=== PATIENT | female | born 2000 | race Caucasian/White ===

== ENCOUNTER 2023-10-11 07:36 | Emergency (ER) | payer OTHER, SELFPAY ==
--- NOTE | 2023-10-11 07:40 | ED.GENADULT ---
HPI - General Adult General Chief complaint: Urogenital-Female Stated complaint: UTI Time Seen by Provider: 10/11/23 07:38 History of Present Illness HPI narrative: Nacho is a 22F with a PMH of frequent UTI that presented to the ED with dysuria, urinary frequency and suprapubic pain. She has slight right flank pain but no, fevers, or systemic symptoms. She has an IUD to prevent . Related Data Home Medications Medication Instructions Recorded Confirmed levonorgestrel 14 mcg/24 hrs (3 1 device intrauterine ONCE 03/13/22 10/11/23 yrs) 13.5 mg intrauterine device (Almaz) Allergies Allergy/AdvReac Type Severity Reaction Status Date / Time No Known Allergies Allergy Unverified 10/11/23 07:43 Review of Systems Review of Systems: All systems reviewed & are unremarkable except as noted in HPI and below PMFSH Surgical History Surgical History H/O gynecological procedure almaz insertion 03/13/2022 Family History Family History Other Diabetes mellitus Social History Social History Smoking status: Never smoker Alcohol intake: never Substance use: never Substance use type: does not use Living arrangements: with family Occupation/Education: occupation Additional occupation/education comments: [employer] Gender identity (if verbalized by the patient): Female Sexual Orientation (if Verbalized by the Patient): Straight or Heterosexual Exam Const: General: cooperative, healthy appearing, comfortable, no acute distress, well developed, alert, awake and Physically active Orientation/consciousness: oriented to person, oriented to place and oriented to time HENMT: Head: normal to inspection, normocephalic and atraumatic Ears: hearing grossly normal bilaterally and external ears normal Face/Nose/Sinus: Normal external nose present Eyes: General: appearance normal, both eyes and all related structures Periorbital: periorbital findings normal Sclera: sclerae normal Pupils: Equal, round and reactive pupils present Neck: Neck: normal visual inspection Chest: Chest palpation & inspection: normal inspection of the chest Resp: Effort & Inspection: normal respiratory effort, able to speak in complete sentences and no respiratory distress Cardio: Jugular venous distension: no JVD GI: Inspection: normal to inspection GI Palp: Yes Soft to palpation Auscultation: normal bowel sounds Skin: General skin exam: normal color and no rashes or lesions noted Neuro: General: oriented to person, oriented to place and oriented to time Cranial nerves: Yes Equal, round and reactive pupils present Extrem: General: normal to inspection Course Vital Signs Vital signs: Vital Signs Temperature 97.5 F L 10/11/23 07:41 Pulse Rate 93 10/11/23 07:41 Respiratory Rate 20 10/11/23 07:41 Blood Pressure 155/95 H 10/11/23 07:41 Pulse Oximetry 98 10/11/23 07:41 Oxygen Delivery Room Air 10/11/23 07:41 Temperature 97.5 F L 10/11/23 07:41 Pulse Rate 93 10/11/23 07:41 Respiratory Rate 20 10/11/23 07:41 Blood Pressure 155/95 H 10/11/23 07:41 Pulse Oximetry 98 10/11/23 07:41 Oxygen Delivery Room Air 10/11/23 07:41 Medical Decision Making Vital Signs Vital Signs: Vital Signs Temperature 97.5 F L 10/11/23 07:41 Pulse Rate 93 10/11/23 07:41 Respiratory Rate 20 10/11/23 07:41 Blood Pressure 155/95 H 10/11/23 07:41 Pulse Oximetry 98 10/11/23 07:41 Oxygen Delivery Room Air 10/11/23 07:41 Temperature 97.5 F L 10/11/23 07:41 Pulse Rate 93 10/11/23 07:41 Respiratory Rate 20 10/11/23 07:41 Blood Pressure 155/95 H 10/11/23 07:41 Pulse Oximetry 98 10/11/23 07:41 Oxygen Delivery Room Air 10/11/23 07:41 Lab Data Labs: Lab Results 10/11/23 Range/Units 07:59
[2023-10-11 07:41] VITALS: BP 155/95; PULSE 93; RESP 20; TEMP 36.4; O2SAT 98
[2023-10-11 08:02] LABS: Appearance Urine Cloudy (Clear); Bilirubin Urine Negative (Negative); Blood Urine 3+ (Negative); Color Urine Yellow (Yellow); Glucose Urine UA Negative (Negative); Ketones Urine Negative (Negative); Leukocyte Esterase Ur 1+ LEU/UL (Negative); Nitrate Urine Positive (Negative); Protein Urine 3+ (Negative); Specific Grav Ur >= 1.030 (1.010-1.020); Urobilinogen Urine 0.2 mg/dL (0.2-1.0)
[2023-10-11 08:07] LABS: Add Urine Microscopic? YES; Bacteria Urine 2+ /hpf; Squamous Epithelial Cell Urine Rare /hpf (Few); WBC Urine 21-30 /hpf (0-3)
[2023-10-11] MEDS: SULFAMETHOXAZOLE/TRIMETHOPRIM 800/160 MG DS TABLET 1 TAB PO (08:31)
[2023-10-11 08:33] VITALS: BP 155/95; PULSE 93; RESP 20; TEMP 36.4; O2SAT 98
--- NOTE | 2023-10-13 14:17 | PC.NURSE ---
PRELIMINARY URINE CULTURE: ISOLATE 1: GREATER THAN 100,000 CFU/ML OF ESCHERICHIA COLI. TO AWAIT C&S PER DR GAMBOA.
--- NOTE | 2023-10-14 13:04 | PC.NURSE ---
final urine culture report reviewed. >100,000 E.coli isolated. report shows sensitivity to bactrim DS. pt was prescribed bactrim DS at discharge. no change in plan of care.
== END 2023-10-11 08:33 | disposition home or self-care (01) ==
PROVIDERS: Emergency Provider Family Medicine
DX: N39.0 Urinary tract infection, site not specified (principal)
CPT/HCPCS: 81001; 87077; 87086; 87088; 87186; 99283; A9270

== ENCOUNTER 2024-05-15 16:47 | Emergency (ER) | payer BC, SELFPAY ==
--- NOTE | 2024-05-15 16:48 | ED.FEMALEGU ---
HPI - Female Genitourinary General Chief complaint: Urogenital-Female Stated complaint: Uti Symptoms Time Seen by Provider: 05/15/24 16:47 Source: patient Mode of arrival: ambulatory Limitations: no limitations History of Present Illness HPI Narrative: Nacho is a 23-year-old old female patient presenting to the clinic today with complaints of possible UTI. She reports symptoms have been going on since Wednesday. Has been taking azo for her symptoms. Denies any fever or chills. Reports she does have some back pain and some lower abdominal cramping. No history of kidney stones. Related Data Home Medications Medication Instructions Recorded Confirmed levonorgestrel 14 mcg/24 hr (up to 1 device intrauterine ONCE 03/13/22 05/15/24 3 yrs) 13.5 mg intrauterine device (Bridgette) Allergies Allergy/AdvReac Type Severity Reaction Status Date / Time No Known Allergies Allergy Verified 05/15/24 17:03 Review of Systems Review of Systems: Pertinent positives per HPI. Patient denies any fever, chills, rash, headache, visual changes, dizziness, cough, runny nose, sore throat, shortness of breath, chest pain, palpitations, nausea, vomiting, diarrhea, constipation, PMFSH Surgical History Surgical History H/O gynecological procedure bridgette insertion 03/13/2022 Family History Family History Other Diabetes mellitus Social History Social History Smoking status: Never smoker Alcohol intake: never Substance use: never Substance use type: does not use Do You Feel Safe in your Home?: Yes Lack of Transportation: No Lack of Food: Never True Current Housing: I Have Housing Concerned About Future Housing: No Difficulty Paying Gas/Electric Bills: No Difficulty Paying for Meds: No Currently Unemployed: No Education: Trade/Vocational Certificate Difficulty w/ Childcare or Family Care: No Living arrangements: with family Occupation/Education: unemployed Gender identity (if verbalized by the patient): Female Sexual Orientation (if Verbalized by the Patient): Straight or Heterosexual Comments At the time of my signature, I reviewed and agree with the nursing past medical, surgical, social, and family history. There is no relevant family history pertinent to the patient complaint. Exam Narrative: General: Well-developed, well nourished, in no apparent distress. Head: Normocephalic, atraumatic. Cardio: Regular rate and rhythm, s1 and s2 normal, no murmur appreciated. Resp: Clear to auscultation bilaterally, no rhonchi, rales, wheezing or rubs. Abdomen: Soft, pliable, bowel sounds present in all quadrants, non-tender to palpation, no organomegly, no CVAT tenderness. Course Course Emergency Course: Portions of this record may have been created with voice recognition software. Level of Care: Express Care Visit Vital Signs Vital signs: Vital signs reviewed MDM - Female Genitourinary MDM Narrative Medical decision making narrative: At the time of visit patient is resting comfortably on the exam table. Patient appears to be nontoxic. Labs: Urinalysis skewed due to azo. We will send for culture. Plan: I suspect patient has acute may tract infection. Prescription for Bactrim was sent to the pharmacy. Supportive measures were discussed with the patient and they voiced understanding discharge instructions and agrees to treatment plan. Return precautions reviewed Differential Diagnosis Differential diagnosis: Likely urinary tract infection and cystitis Discharge Plan Discharge Clinical Impression: Urinary tract infection Qualifiers: Urinary tract infection type: acute cystitis Hematuria presence: with hematuria Qualified Code(s): N30.01 - Acute cystitis with hematuria Patient Disposition: Home, [place]
[2024-05-15 16:54] VITALS: BP 133/88; PULSE 68; RESP 16; TEMP 36.9; O2SAT 100
[2024-05-15 17:04] LABS: EDUAAPPEAR Cloudy; EDUABILI Negative; EDUABLOOD 3+; EDUACOLOR1 Orange; EDUAGLUCOSE Trace; EDUAKETONE Negative; EDUALEUKO 3+; EDUANITRATE Positive; EDUAPROTEIN 2+
== END 2024-05-15 17:10 | disposition home or self-care (01) ==
PROVIDERS: Emergency Provider Nurse Practitioner Family
DX: N30.01 Acute cystitis with hematuria (principal); B96.20 Unspecified Escherichia coli [E. coli] as the cause of diseases classified elsewhere
CPT/HCPCS: 81003; 87077; 87086; 87088; 87186; 99213; G0463

== ENCOUNTER 2025-07-06 14:57 | Emergency (ER) | payer BC, SELFPAY ==
--- NOTE | ~2025-07-06 | XR_ITS ---
EXAMINATION: XR ankle RT min 3V, 07/06/2025 15:22 CDT HISTORY: GLF, SWELLING TO LATERAL ANKLE COMPARISON: No comparisons available. Findings: Nondisplaced fracture of the lateral malleolus. No significant degenerative changes. Soft tissue swelling. Impression: Lateral malleolus fracture Reviewed, dictated and finalized at location . Impression: Lateral malleolus fracture
--- OUTSIDE RECORDS SUMMARY | 2025-07-06 14:59 | XMS_ITS | Clinical Summary ---
Author Organization [facility] Address [address] [place] [address] Care Team Providers Care Optometric Technologist Name Role Phone Ivan Macias PA-C Primary Care Provider Source Comments [facility]non-owned Affiliates and Associated Physician Practices is amultiple site organization consisting of ambulatory clinics and hospital sitesin [place], [place], [place] and [place]. This disclosure is being madepursuant to the Care Everywhere program and may not contain all information available regarding this patient. Last updated 18.[facility] Allergies No known active allergies Medications * This document contains information received from the source organization and may not represent a complete record from that organization. * Be aware that medications may not be up to date on this document. Alwaysverify current medications with the patient. Rosalie Fe .5 1.5-30 MG-MCG tablet Take 1 (one) tablet by mouth once daily 06/20/2024 Active propranolol (Inderal) 10 MG tabletIndicatio ns:Social anxiety disorder Take 1-2 tablets twice daily/as needed for anxiety. 60 tablet 2 08/24/2024 Active traZODone (Desyrel) 50 MG tabletIndicatio ns:Social anxiety disorder Take 1-2 tablets at night/as needed for insomnia. Take 1 hour prior to bedtime, and allow for 8 hours of sleep. 60 tablet 2 08/24/2024 Active Active Problems Problem Noted Date Diagnosed Date Social anxiety disorder 08/30/2024 Unspecified mood (affective) disorder 08/30/2024 Biceps tendinitis of right shoulder 11/27/2022 Subacromial bursitis of right shoulder joint Acne vulgaris 11/10/2016 Immunizations Immunization Administration Dates Next Due HEP A PED/ADULT VACCINE 04/09/2008 HEP B VACCINE, PED/ADOL 2002 Human Papilloma Virus Ninevalent Vaccine 019 INFLUENZA VACCINE 06/07/2012,11/05/2009 INFLUENZA VACCINE, QUADR. (F LUZONE; FLULAVAL; FLUARIX; AFLURIA QUADRIVALENT; 6MO+), 0.5 ML (IIV4) 08/06/2023 INFLUENZA VACCINE, TRIV. (FL UZONE; FLULAVAL; FLUARIX; AFLURIA TRIVALENT; 6MO+), 0.5 ML (IIV3) 06/16/2024,07/02/2016 MIRIAM VACCINE QUAD LAIV4 PF NASAL 06/15/2014,2012 MENINGOCOCCAL ACWY (MCV4P) VAC IM 07/06/2020,12/2018,06/15/2014 MMR VACCINE 04/09/2008 POLIO IPV 04/09/2008 TDAP (7yrs+) 06/16/2024 TDAP, HISTORIC VACCINE 06/15/2014 Family History Medical History Relation Name Comments CAD (Coronary Artery Disease) Father Diabetes - Type 2 Father Renal Disease Father born with one kidney CAD (Coronary Artery Disease) Maternal Grandfather Diabetes - Type 2 Maternal Grandfather CAD (Coronary Artery Disease) Maternal Grandmother Anxiety Disorder Mother Asthma Mother Depression Mother CVA Paternal Grandfather Thyroid Disease Paternal Grandmother Relation Name Status Comments Father Alive Maternal Grandfather Alive Maternal Grandmother Alive Mother Alive Paternal Grandfather Alive Paternal Grandmother Alive Social History Tobacco Use Types Packs/Day Years Used Date Smoking Tobacco: Never Smokeless Tobacco: Never Tobacco Cessation:Counseling Given: Not Answered Alcohol Use Standard Drinks/Week Comments Not Currently 0 (1 standard drink = 0.6 oz pur e alcohol) PHQ-2 Answer Date Recorded Patient Health Questionnaire-2 Score 4 08/24/2024 Comments No Sex and Gender Information Value Date Recorded Sex Assigned at Not on file Legal Sex Female 5:42 AM MANAGER MAIL Gender Identity Not on file Sexual Orientation Not on file Occupation Industry Job Start Date Job End Date Not on file Not on file Not on file Not on file Last Filed Vital Signs Vital Sign Reading Time Taken Comments Blood Pressure 147/101 08/24/2024 1:15 PM MANAGER MAIL Pulse 87 08/24/2024 1:15 PM MANAGER MAIL Temperature 37.1 C (98.7 F) 08/06/2023 10:05 AM MANAGER MAIL Respiratory Rate 20 06/16/2024 2:32 PM CDT Oxygen Saturation 98% 06/16/2024 2:32 PM CDT Inhaled Oxygen Concentration - - Weight 105.7 kg (233 lb) 08/24/2024 1:15 PM MANAGER MAIL Height 160 cm (5' 3) 08/24/2024 1:15 PM MANAGER MAIL Body Mass Index 41.27 08/24/2024 1:15 PM MANAGER MAIL Plan of Treatment Health Maintenance Due Date Last Done Comments HEPATITIS B VACCINE (2 of 3 - 3-dose series) 2002 2002 HIV SCREENING 2017 CHLAMYDIA/GONORRHEA SCREENING 2018 MENINGOCOCCAL (Group B) VACCINE SHARED DECISION-MAKING (1 of 2 - Standard) 2018 HPV VACCINE (2 - 3-dose series) 09/13/2019 08/16/2019 HEPATITIS C SCREENING 10/15/2020 PAP SMEAR 2023 DEPRESSION SCREENING 09/13/2024 06/16/2024, 12/18/19 23 COVID-19 VACCINE (3 - 2024- season) 2025 12/29/2020, 12/09/2020 INFLUENZA VACCINE (#1) 2025 , 08/06/2023, 07/02/2016, Additional history exists DTAP/TDAP/TD VACCINES (3 - Td or Tdap) 06/16/2034 06/16/2024, 06/15/2014 ZOSTER VACCINE (1 of 2) 2052 MENINGOCOCCAL GROUPS A/C/Y/W VACCINE Completed 07/06/2020, 08/16/2019, 06/15/2014 HIB VACCINE Aged Out No longer eligi ble based on patient's age to complete this topic PNEUMOCOCCAL VACCINE Aged Out No long er eligible based on patient's age to complete this topic Insurance [facility] Address: [address] [address] [facility] Care Teams Optometric Technologist Relationship Specialty Start Date End Date Ivan Macias PA-C [address] [phone] PCP - General 01/15/23
--- OUTSIDE RECORDS SUMMARY | 2025-07-06 14:59 | XMS_ITS | Clinical Summary ---
Author Organization [facility] [address] [facility] [place] Address [address] [place] [address] Care Team Providers Care High Pressure Operator Name Role Phone Echo Gonzalez MD Primary Care Provider [phone] Allergies No known active allergies Active Problems Problem Noted Date Diagnosed Date Acne vulgaris 11/10/2016 Social History Tobacco Use Types Packs/Day Years Used Date Smoking Tobacco: Never Assessed Personal Safety Answer Date Recorded Have you ever been in or are you currently in a harmful physical or emotional relationship or is someone making you feel afraid or unsafe? Denies 07/11/2024 Comments Unknown Sex and Gender Information Value Date Recorded Sex Assigned at Not on file Legal Sex Female 5:28 AM PARA MACHINE OPERATOR Gender Identity Not on file Sexual Orientation Not on file Obstetrics History Last Filed Vital Signs Vital Sign Reading Time Taken Comments Blood Pressure 135/80 07/11/2024 11:37 PM CDT Pulse 95 07/11/2024 11:37 PM CDT Temperature 37.6 C (99.7 F) 07/11/2024 11:37 PM CDT Respiratory Rate 18 07/11/2024 11:37 PM CDT Oxygen Saturation 99% 07/11/2024 11:37 PM CDT Inhaled Oxygen Concentration - - Weight 104.3 kg (230 lb) 07/11/2024 11:37 PM CDT Height 160 cm (5' 3) 07/11/2024 11:37 PM CDT Body Mass Index 40.74 07/11/2024 11:37 PM CDT Plan of Treatment Health Maintenance Due Date Last Done Comments Cervical Cancer Screening 2002 Depression Screening 2002 Hepatitis C Screening 2002 Varicella Vaccines (1 of 2 - 13+ 2-dose series) 2015 Meningococcal B Vaccine (1 of 2 - Standard) 2018 HPV Vaccines (2 - 3-dose series) 09/13/2019 08/16/2019 Regular Well Visit/Exam 18-64 2020 Covid-19 Vaccine (3 - 2024- season) 2025 12/29/2020, 12/09/2020 Influenza Vaccine (#1) 2025 , 08/06/2023, 07/02/2016, Additional history exists DTaP/Tdap/Td Vaccine (3 - Td or Tdap) 06/16/2034 06/16/2024, 06/15/2014 Hepatitis B Screening Completed 2002 Pneumococcal vaccine <65 Aged Out No longer eligible based on patient's age to complete this topic Insurance [facility] IDPA [facility] Basha OOS Member Subscriber Plan / Payer (Ef fective 2024-Present) Name:Nacho Woodward Relation to Subscriber:Child Name:BRENDA WOODWARD II Date of :1974 Address: [address] [place] [address] Payer ID:[id number] (NAIC) Type: ISABELLA Address: [address] [place] [id number] Care Teams High Pressure Operator Relationship Specialty Start Date End Date Echo Gonzalez MD [address] [place] [address] PCP - General Pediatrics 06/30/21
[2025-07-06 15:01] VITALS: BP 139/67; PULSE 106; RESP 14; TEMP 36.6; O2SAT 99
--- OUTSIDE RECORDS SUMMARY | 2025-07-06 15:41 | XMS_ITS | Clinical Summary ---
Author Organization [facility] [address] [place] Address [address] [place] [address] Care Team Providers Care Venture Capitalist Name Role Phone Echo Gonzalez MD Primary Care Provider [phone] Allergies No known active allergies Active Problems [...] on file Legal Sex Female 5:28 AM BIOINFORMATICS SCIENTIST Gender Identity Not on file Sexual Orientation [...] patient's age to complete this topic Insurance [facility] IDPA [facility] Sunrun OOS Member Subscriber Plan / Payer (Ef fective 2024-Present) Name:Nacho Woodward Relation to Subscriber:Child Name:BRENDA WOODWARD II Date of :1974 Address: [address] [place] [address] Payer ID:[id number] (NAIC) Type: ISABELLA Address: [address] [place] [id number] Care Teams Venture Capitalist Relationship Specialty Start Date End Date Echo Gonzalez MD [address] [place] [address] PCP - General Pediatrics 06/30/21
--- OUTSIDE RECORDS SUMMARY | 2025-07-06 15:41 | XMS_ITS | Clinical Summary ---
Author Organization [facility] Address [address] [place] [address] Care Team Providers Care Downstream Biomanufacturing Technician Name Role Phone Ivan Macias PA-C Primary Care Provider Source Comments [facility],non-owned Affiliates and Associated Physician Practices is amultiple site organization consisting of ambulatory clinics and hospital sitesin [place], [place], [place] and [place]. This disclosure is being madepursuant to the Care Everywhere program and may not contain all information available regarding this patient. Last updated 18.[facility] Allergies No known active allergies Medications * [...] on file Legal Sex Female 5:42 AM GREY GOODS EXAMINER Gender Identity Not on file Sexual Orientation Not on file Occupation Industry Job Start Date Job End Date Not on file Not on file Not on file Not on file Last Filed Vital Signs Vital Sign Reading Time Taken Comments Blood Pressure 147/101 08/24/2024 1:15 PM GREY GOODS EXAMINER Pulse 87 08/24/2024 1:15 PM GREY GOODS EXAMINER Temperature 37.1 C (98.7 F) 08/06/2023 10:05 AM GREY GOODS EXAMINER Respiratory Rate 20 06/16/2024 2:32 PM CDT Oxygen Saturation 98% 06/16/2024 2:32 PM CDT Inhaled Oxygen Concentration - - Weight 105.7 kg (233 lb) 08/24/2024 1:15 PM GREY GOODS EXAMINER Height 160 cm (5' 3) 08/24/2024 1:15 PM GREY GOODS EXAMINER Body Mass Index 41.27 08/24/2024 1:15 PM GREY GOODS EXAMINER Plan of Treatment Health Maintenance Due Date [...] patient's age to complete this topic Insurance [facility] Address: [address] [address] [facility] Care Teams Downstream Biomanufacturing Technician Relationship Specialty Start Date End Date Ivan Macias PA-C [address] [phone] PCP - General 01/15/23
--- NOTE | 2025-07-06 16:34 | ED.LOWEXIN ---
HPI - Extremity Injury (Lower) General Chief Complaint: Extremity Injury, Lower Stated Complaint: ankle injury Time Seen by Provider: 07/06/25 15:27 History of Present Illness HPI Narrative: Patient is wearing 4-year-old female who presents ER with right ankle pain. Lateral malleolus. Was walking down some steps when she suffered inversion injury and felt a crack. Mild tingling around her lateral malleolus. Unable to bear weight due to pain. Related Data Allergies Allergy/AdvReac Type Severity Reaction Status Date / Time No Known Allergies Allergy Verified 07/06/25 15:05 Review of Systems Constitutional: Constitutional: Reports no additional constitutional complaints Musculoskeletal: Musculoskeletal: Reports no additional musculoskeletal complaints Integumentary/Breasts: Skin/Breast: Reports system reviewed and no additional complaints, except as docu Neurologic: Reports system reviewed and no additional complaints, except as documented PMFSH Surgical History Surgical History H/O gynecological procedure almaz insertion 03/13/2022 Family History Family History Other Diabetes mellitus Social History Social History Smoking status: Never smoker Alcohol intake: never Substance use: never Substance use type: does not use Do You Feel Safe in your Home?: Yes Lack of Transportation: No Lack of Food: Never True Current Housing: I Have Housing Concerned About Future Housing: No Difficulty Paying Gas/Electric Bills: No Difficulty Paying for Meds: No Currently Unemployed: No Education: Trade/Vocational Certificate Difficulty w/ Childcare or Family Care: No Living arrangements: with family Occupation/Education: unemployed Gender identity (if verbalized by the patient): Female Sexual Orientation (if Verbalized by the Patient): Straight or Heterosexual Exam Narrative: GENERAL: Well-appearing, well-nourished, and in no acute distress. HEAD: Normocephalic, atraumatic. ENT: Mucous membranes moist. HEART: Regular rate and rhythm. Normal peripheral pulses. EXTREMITIES: Normal range of motion. No edema. Tender palpation right lateral malleolus further soft tissue swelling. NEURO: Alert and oriented x3. PSYCH: Normal mood and affect. Course Vital Signs Vital signs: Vital Signs Temperature 97.8 F 07/06/25 15:01 Pulse Rate 106 H 07/06/25 15:01 Respiratory Rate 14 07/06/25 15:01 Blood Pressure 139/67 07/06/25 15:01 Pulse Oximetry 99 07/06/25 15:01 Oxygen Delivery Room Air 07/06/25 15:01 Temperature 97.8 F 07/06/25 15:01 Pulse Rate 106 H 07/06/25 15:01 Respiratory Rate 14 07/06/25 15:01 Blood Pressure 139/67 07/06/25 15:01 Pulse Oximetry 99 07/06/25 15:01 Oxygen Delivery Room Air 07/06/25 15:01 Discharge Plan Discharge Clinical Impression: Ankle fracture Patient Disposition: Home Condition: Stable Instructions: Ankle Fracture (ED) Additional Instructions: Return the ER if you suffered a new injury, you have chest pain shortness of breath, you cannot keep down food water, or you have additional concerns. Follow-up with orthopedic surgery for further treatment and evaluation. Patient Language: Mauritanian Prescriptions: New hydrocodone-acetaminophen 5-325 mg tablet 1 tablet PO Q6H PRN (Reason: pain) Qty: 10 0RF No Action norethindrone-e.estradiol-iron [Rosalie Fe 1.5/30 (28)] 1.5 mg-30 mcg (21)/75 mg (7) tablet See Rx Instructions .ROUTE .COMPLEX Qty: 84 0RF Dose Instruction: Take 1 tablet by mouth once daily Rx Instructions: Take 1 tablet by mouth once daily Follow-up/Referrals: PHYSICIAN,SURGICAL TECHNOLOGY INSTRUCTOR [Primary Care Provider, Internal Medicine] Rajiv Lazo MD [Physician, Orthopedics] - 1 Week
== END 2025-07-06 16:57 | disposition home or self-care (01) ==
PROVIDERS: Emergency Provider Emergency Medicine
DX: S82.64XA Nondisplaced fracture of lateral malleolus of right fibula, initial encounter for closed fracture (principal); X50.9XXA Other and unspecified overexertion or strenuous movements or postures, initial encounter
CPT/HCPCS: 29515; 73610; 99284